=== PATIENT | male | born 1985 | race Caucasian/White ===

== ENCOUNTER 2024-11-10 07:38 | Emergency (ER) | payer BC, SELFPAY ==
[2024-11-10 07:53] VITALS: BP 133/89
--- NOTE | 2024-11-10 08:53 | ED.GENMED ---
History of Present Illness
General
Chief Complaint: Blood and Body Fluid Exposure
Time Seen by Provider: 11/10/24 08:53
History of Present Illness
History of Present Illness:
TIME OF INITIAL ENCOUNTER: 8:54 AM
HPI: The patient is a heterosexual male who had unprotected intercourse with a female last night. This the first time he had a sexual encounter in 1 year (he had been in a monogamous relationship for 6 years until his divorce). He found out that
one of the female's partner had used precision grinder external in the past. He has a history of psoriasis but only uses creams and is on no immunosuppressants. He requests PEP.
EXAM:
GENERAL: Well appearing in no distress
HEENT: Moist oral mucosa
NEUROLOGIC: Excellent strength all extremities, no coordination deficits
PSYCHIATRIC: Appropriate mental status, normal insight and judgement, appears somewhat anxious and embarrassed
EXTREMITIES: Nontender, no edema, moves all extremities equally
SKIN: No rash, no lesions
NUMBER AND COMPLEXITY OF PROBLEMS ADDRESSED AT THE ENCOUNTER
� Chronic conditions affecting care: Psoriasis
� Acute Exacerbation and/or Progression of Chronic Illness: This is an acute problem
� Differential Diagnosis includes: Here for consideration of PEP
AMOUNT AND/OR COMPLEXITY OF DATA TO BE REVIEWED AND ANALYZED
� I performed an independent evaluation of and my interpretation is:
EKG:
CT:
X-rays:
Laboratory Studies: CBC normal, chemistries unremarkable including normal LFTs, HIV negative give, hepatitis panel unremarkable
Other:
� Review of other/old records: No old records for review in [facility]
� Clinical information was obtained by an independent historian: None needed
� Prescriptions/Medications Considered but not given:
� Further testing considered but not performed:
RISK OF COMPLICATIONS AND/OR MORBIDITY OR MORTALITY OF PATIENT MANAGEMENT
� Social determinants of health affecting care: Lives at home
� Discussion with other providers: Discussed case with Dr. Gonzalez who has no objection to starting PEP
� Escalation of care including admission/observation vs risk of discharge considered: Will start PEP, LFTs normal
ANY OTHER UPDATES:
At about 11:10 AM, patient called here indicating that his pharmacy[facility] will not have the medications until Tuesday. I have asked pharmacy here to give additional meds for PEP Tonight and tomorrow.
12 PM: The patient did come back and did receive the additional meds.
Phy Exam
Physical Exam
Physical Exam:
See HPI
Course
Orders/Labs/Results
Orders:
Orders
11/10/24 09:20
Pt has had a significant HIV exposure? Routine
HIV Exposure is significant?: Yes
Emtricitabine/Tenofovir [Truvada Tablet] 1 tablet PO NOW STA
Raltegravir Potassium [Isentress] 400 mg PO NOW STA
11/10/24 09:57
Complete Blood Count/No Diff Urgent
HIV Combo Urgent
11/10/24 09:58
Comprehensive Metabolic Panel Urgent
Hepatitis B Surface Antibody Urgent
Hepatitis B Surface Antigen Urgent
Hepatitis C Antibody Urgent
11/10/24 11:06
Raltegravir Potassium [Isentress] 400 mg PO NOW STA
11/10/24 11:10
Emtricitabine/Tenofovir [Truvada Tablet] 1 tablet PO NOW STA
Raltegravir Potassium [Isentress] 800 mg PO NOW STA
11/10/24 11:22
Raltegravir Potassium [Isentress] 400 mg PO NOW STA
11/10/24 11:23
Raltegravir Potassium [Isentress] 400 mg PO NOW STA
Abnormal Lab Results
11/10/24 11/10/24
09:57 09:58
RBC 4.55 L 10^6/uL
(4.70-6.10)
MCH 32.1 H pg
(27.0-31.0)
Glucose 104 H mg/dl
(70-99)
Calcium 10.3 H mg/dl
(8.4-10.2)
Albumin 5.3 H g/dl
(3.5-5.0)
11/10/24 09:57
11/10/24 09:58
Vital Signs
Initial and Last Documented VS:
Initial Vital Signs
Temp Pulse Resp BP Pulse Ox
37.2 C 80 16 133/89 96
11/10/24 07:53 11/10/24 07:53 11/10/24 07:53 11/10/24 07:53 11/10/24 07:53
Last Documented Vital Signs
Temp Pulse Resp BP Pulse Ox
37.2 C 80 16 133/89 96
11/10/24 07:53 11/10/24 07:53 11/10/24 07:53 11/10/24 07:53 11/10/24 07:53
*Critical Care Note
Total Time (30-74mins, 75-104mins- exclusive of procedures): Not Applicable
ED Attending Note
-
Portions of this chart may have been created with voice recognition software.� Occasional wrong word or��sound alike� substitutions may have occurred due to the inherent limitations of voice recognition software.
Discharge Plan
Departure
Patient Disposition: Home (Routine Discharge)
Date of Disposition: 11/10/24
Time of Disposition: 09:21
Patient with high blood pressure during this ER visit?: Yes
Discharge Problem:
At risk for sexually transmitted infection due to unprotected sex
Instructions: BLOOD PRESSURE
Prescriptions:
New
Descovy 200-25 mg tablet
1 tab PO DAILY Qty: 28 0RF
Isentress 400 mg tablet
400 mg PO BID Qty: 56 0RF
Stand Alone Forms: Bl/Fluid Consent/Declination
Activity Restrictions/Additional Instructions:
I spoke to infectious disease, Dr. Gonzalez. He has no objection to starting postexposure prophylaxis.
Interventions
Interventions:
*Risk Screen - Suicide Last Done: 11/10/24 07:53
*General Assessment Last Done: 11/10/24 10:05
*Neglect/Abuse Screening Last Done: 11/10/24 07:53
*ED- Fall Risk Assessment Last Done: 11/10/24 10:05
*ED COVID-19 Vaccine History Last Done: 11/10/24 10:05
*Nursing Disposition Last Done: 11/10/24 10:06
ED-EENT Assessment Last Done: 11/10/24 10:06
ED-Skin Assessment Last Done: 11/10/24 10:06
Discharge Date and Time
Discharge Date/Time: 11/10/24 10:07
Print Language: STATELESS
[2024-11-10] MEDS: ISENTRESS 400 MG PO (09:56)
[2024-11-10] MEDS: TRUVADA TABLET 1 TABLET PO (09:56)
[2024-11-10 10:05] VITALS: BMI 22.7
[2024-11-10 10:20] LABS: Hematocrit 41.6 % (39.0-52.0); Hemoglobin 14.6 g/dL (13.0-18.0); Mean Corp Hgb Conc. 35.1 g/dL (33.0-37.0); Mean Corpuscular Hgb 32.1 pg (27.0-31.0); Mean Corpuscular Volume 91.4 fL (80.0-94.0); Mean Platelet Volume 9.8 fL (7.4-10.4); Platelet Count 229 10^3/uL (130-400); Red Blood Cell Count 4.55 10^6/uL (4.70-6.10); Red Cell Dist. Width 12.5 % (11.5-14.5); White Blood Cell Count 8.5 10^3/uL (4.8-10.8)
[2024-11-10 10:36] LABS: ALT (SGPT) 25 U/L (0-50); AST (SGOT) 29 U/L (17-59); Albumin 5.3 g/dl (3.5-5.0); Alkaline Phosphatase 73 U/L (38-126); Blood Urea Nitrogen 10 mg/dl (9-20); Calcium 10.3 mg/dl (8.4-10.2); Carbon Dioxide 30 mmol/L (22-30); Chloride 99 mmol/L (98-107); Estimated Creatinine Clearance 113 ml/min; Glucose 104 mg/dl (70-99); Potassium 4.3 mmol/L (3.5-5.1); Sodium 140 mmol/L (135-145); Total Bilirubin 0.8 mg/dl (0.2-1.3); Total Protein 7.8 g/dl (6.3-8.2); eGFR > 60.00
[2024-11-10 12:03] LABS: Hepatitis B Surface Antigen Negative (Negative)
[2024-11-10 12:13] LABS: HIV Combo Negative (Negative)
[2024-11-10 12:21] LABS: Hepatitis B Surface Antibody Positive; Hepatitis C Antibody Negative (Negative)
== END 2024-11-10 10:07 | disposition home or self-care (01) ==
LOC: EMR 07:38
PROVIDERS: EMERGENCY PHYSICIAN Emergency Medicine
DX: Z20.2 Contact with and (suspected) exposure to infections with a predominantly sexual mode of transmission (principal)
CPT/HCPCS: 99283; 80053; 85027; 86706; 86803; 87340; 87389